=== PATIENT | female | born 1985 | race African-American/Black ===

== ENCOUNTER 2016-12-03 23:12 | Emergency (ER) | payer OTHER ==
[~2016-12-03] VITALS: Ht 172.7 cm; Wt 71.7 kg
[2016-12-04] MEDS ORDERED: IBUPROFEN 800 MG TABLET PO ONE (01:00)
[2016-12-04] MEDS ORDERED: IBUPROFEN 800 MG TABLET ONE (01:01)
[2016-12-04 01:17] LABS: *BILIRUBIN,URIN NEGATIVE (NEGATIVE); *BLOOD, URINE NEGATIVE (NEGATIVE); *CLARITY,URINE SLIGHTLY CLOUDY (CLEAR); *COLOR,URINE YELLOW (YELLOW); *KETONES,URINE TRACE (NEGATIVE); *PROTEIN,URINE TRACE (NEGATIVE); LEUKOCYTE ESTERASE ,URINE NEGATIVE (NEGATIVE); NITRITE, URINE NEGATIVE (NEGATIVE); PH,URINE 6.5 (5.0-8.0); UGLUCOSE NEGATIVE (NEGATIVE)
[2016-12-04 01:28] LABS: *URINE HCG, QUAL NEGATIVE (NEGATIVE); BACTERIA,URINE FEW /HPF (NONE SEEN); RBC,URINE 0-3 /HPF (0-3); SQUAMOUS EPITHELIAL CELL,UR MANY /HPF (NONE SEEN); WBC,URINE 0-3 /HPF (0-3)
--- NOTE | 2016-12-04 03:14 | NUR ---
Patient discharged to home in stable conditon. Written and verbal after care instructions given. Patient verbalizes understanding of instructions.
== END 2016-12-04 03:14 | disposition home or self-care (01) ==
LOC: ER 23:14
DX: S16.1XXA Strain of muscle, fascia and tendon at neck level, initial encounter (principal); S39.012A Strain of muscle, fascia and tendon of lower back, initial encounter; V89.2XXA Person injured in unspecified motor-vehicle accident, traffic, initial encounter; Y93.89 Activity, other specified; Y99.8 Other external cause status; Y92.89 Other specified places as the place of occurrence of the external cause
CPT/HCPCS: 72125; 72131; 84703; A4663

== ENCOUNTER 2018-01-23 16:48 | Emergency (ER) | payer OTHER ==
[~2018-01-23] VITALS: Ht 172.7 cm; Wt 83.9 kg
[2018-01-23 17:41] LABS: *URINE HCG, QUAL NEGATIVE (NEGATIVE)
[2018-01-23 17:42] LABS: *BILIRUBIN,URIN NEGATIVE (NEGATIVE); *BLOOD, URINE NEGATIVE (NEGATIVE); *COLOR,URINE YELLOW (YELLOW); *KETONES,URINE NEGATIVE (NEGATIVE); *PROTEIN,URINE NEGATIVE (NEGATIVE); *UROBILINOGEN,URINE 0.2 E.U./dl (NORMAL); LEUKOCYTE ESTERASE ,URINE TRACE (NEGATIVE); NITRITE, URINE NEGATIVE (NEGATIVE); UGLUCOSE NEGATIVE (NEGATIVE)
[2018-01-23 17:45] LABS: *CLARITY,URINE SLIGHTLY HAZY (CLEAR)
[2018-01-23 17:47] LABS: BACTERIA,URINE MODERATE /HPF (NONE SEEN); MUCUS,URINE FEW /LPF (0-FEW); RBC,URINE 0-3 /HPF (0-3); SQUAMOUS EPITHELIAL CELL,UR MANY /HPF (NONE SEEN)
[2018-01-23] MEDS ORDERED: HYDROCODONE/APAP 10-325 MG TABLET PO ONE (18:00)
[2018-01-23] MEDS ORDERED: HYDROCODONE/APAP 10-325 MG TABLET ONE (18:02)
--- NOTE | 2018-01-23 18:44 | NUR ---
MSE COMPLETED, ACI/WORK NOTE/RX X3 GIVEN. PT AMBULATED W/O DIFF/TOOK ALL BELONGINGS.
[2018-01-23 18:46] VITALS: BP 128/77
== END 2018-01-23 18:48 | disposition home or self-care (01) ==
LOC: ER 16:48
DX: M54.5 Low back pain (principal)
CPT/HCPCS: 72100; 81001; 84703; 99285; A4663